=== PATIENT | male | born 1945 | race Caucasian/White ===

== ENCOUNTER 2024-12-14 17:20 | Inpatient (IN) ==
[2024-12-14 18:17] LABS: BASOPHILS # (AUTO) 0.1 X10^3/uL (0.0-0.1); BASOPHILS % (AUTO) 1.1 % (0.2-1.0); EOSINOPHILS # (AUTO) 0.8 x10^3/uL (0.0-0.2); EOSINOPHILS % (AUTO) 10.1 % (0.9-2.9); HEMATOCRIT 27.6 % (42.0-54.0); HEMOGLOBIN 9.4 g/dL (13.5-18.0); LYMPHOCYTES # (AUTO) 0.5 X10^3/uL (1.3-2.9); LYMPHOCYTES % (AUTO) 7.2 % (21.0-51.0); MEAN CORPUSCULAR HGB CONC 34.1 g/dL (33.0-35.0); MEAN CORPUSCULAR VOLUME 79.2 fL (80.0-100.0); MEAN PLATELET VOLUME 7.4 fL (7.4-11.0); MONOCYTES # (AUTO) 0.7 x10^3/uL (0.3-0.8); MONOCYTES % (AUTO) 8.7 % (0.0-13.0); NEUTROPHILS # (AUTO) 5.5 x10^3/uL (2.2-4.8); NEUTROPHILS % (AUTO) 72.9 % (42.0-75.0); PLATELET COUNT 306 X10^3/uL (150.0-450.0); RED BLOOD COUNT 3.49 X10^6/uL (4.7-6.0); RED CELL DISTRIBUTION WIDTH 15.7 % (11.6-16.5); WHITE BLOOD COUNT 7.6 X10^3/uL (3.6-10.0)
[2024-12-14] MEDS: LASIX IVP ONE (18:21)
[2024-12-14 18:28] LABS: ALBUMIN 2.9 g/dL (3.4-5.0); CALCIUM 9.2 mg/dL (8.5-10.1); CARBON DIOXIDE 18.6 mmol/L (21-32); COR CA(FOR HYPOALB) 10.1 mg/dL (8.5-10.1); CREATININE 6.59 mg/dL (0.70-1.30); TOTAL PROTEIN 7.2 g/dL (6.4-8.2)
--- NOTE | 2024-12-14 18:29 | EKG ---
Test Reason : dyspnea Blood Pressure : */* mmHG Vent. Rate : 79 BPM Atrial Rate : 79 BPM P-R Int : 162 ms QRS Dur : 80 ms QT Int : 358 ms P-R-T Axes : 47 -27 54 degrees QTc Int : 410 ms Normal sinus rhythm Low voltage QRS Borderline ECG No previous ECGs available Confirmed by Glynn Quiroga MD ([id number]) on 12/15/2024 7:25:23 AM Referred By: Confirmed By: Glynn Quiroga MD
[2024-12-14 18:37] LABS: POTASSIUM 5.5 mmol/L (3.5-5.1)
[2024-12-14 19:09] LABS: BILIRUBIN,URINE NEGATIVE (NEGATIVE); BLOOD/HEMOGLOBIN,URINE 4+ (NEGATIVE); GLUCOSE, URINE NEGATIVE (NEGATIVE); KETONES,URINE NEGATIVE (NEGATIVE); LEUKOCYTE ESTERASE ,URINE 1+ (NEGATIVE); NITRITES,URINE NEGATIVE (NEGATIVE); PROTEIN,URINE 1+ (NEGATIVE); UROBILINOGEN,URINE NORMAL (NORMAL)
[2024-12-14 19:24] LABS: APPEARANCE,URINE CLEAR (CLEAR); COLOR,URINE YELLOW (YELLOW)
[2024-12-14 19:25] LABS: BACTERIA,URINE TRACE /HPF (NEGATIVE); SQUAMOUS EPITHELIAL CELL,UR RARE /HPF (NEGATIVE)
[2024-12-14 19:36] LABS: INR 1.31 (0.8-1.3)
--- NOTE | 2024-12-14 19:39 | RAD ---
EXAM:FRONTAL VIEW CHEST X-RAYHISTORY:Shortness of Breath;COMPARISON:None.FINDINGS:Dif fuse multifocal consolidation is seen throughout the right lung predominantly occupying the right upper lung zone. There is also airspace disease in the left lower lung zone.The heart size is within normal limits.The mediastinum is unremarkable.There is no evidence of pleural effusion or gross pneumothorax.The trachea is midline.IMPRESSION:1. Diffuse multifocal consolidation is seen throughout the right lung predominantly occupying the right upper lung zone. There is also airspace disease in the left lower lung zone. This may represent acute or chronic airspace disease. Follow-up to complete resolution may be obtained as clinically indicated.THIS IS AN ELECTRONICALLY VERIFIED FINAL REPORT12/14/2024 7:36 PM - Electronically signed by Cricket Mc MD
[2024-12-14 19:42] LABS: MAGNESIUM 2.1 mg/dL (2.0-2.9)
[2024-12-14] MEDS: ROCEPHIN VIAL 1 GRAM 1 G in NS 100 ML IV 100 ML IV ONE (19:46)
[2024-12-14] MEDS: D50W ABBOJECT SYR IV ONE (19:46)
[2024-12-14] MEDS: CALCIUM GLUCONATE 10% 1 G in NS 100 ML IV 100 ML IV ONE (19:46)
[2024-12-14] MEDS: SODIUM BICARBONATE 8.4% INJ ADULT IVP ONE (19:46)
--- NOTE | 2024-12-14 20:06 | CT ---
EXAM:CHEST W/O CONHISTORY:c/o "swelling all over" 4+ edema noted to left arm and leg and 3+ pitting noted to right leg.;COMPARISON:Frontal chest radiograph same day 6:47 p.m.TECHNIQUE:CT of the chest without contrastFINDINGS:Sensitivity is reduced without intravenous contrast. The thoracic aorta tapers normally. Mediastinal lymphadenopathy is present. Coronary atherosclerotic calcifications are noted in the LAD. Trace pericardial fluid is noted. Small hiatal hernia is present.Limited visualization of the upper abdomen demonstrates no acute process. There is a moderate size layering right pleural effusion.There is dense airspace opacity in the right lung with air bronchograms suggesting severe pneumonia. Milder similar airspace infiltrates are present in the left lower lung. No suspicious bony lesion.IMPRESSION:Bilateral pneumonia versus pulmonary edema, severe on the right and mild on the left. Pneumonia and pulmonary edema both could be present.Moderate layering right pleural effusion.All CT scans at this facility use dose modulation, iterative reconstruction, and/or weight based dosing when appropriate to reduce radiation dose to as low as reasonably achievable.THIS IS AN ELECTRONICALLY VERIFIED FINAL REPORT12/14/2024 8:03 PM - Electronically signed by Lisandro Dc MD
[2024-12-14] MEDS: NovoLIN R (or HumuLIN R) IV ONE (20:07)
--- NOTE | 2024-12-14 20:11 | CT ---
EXAM: CT ABDOMEN AND PELVIS WITHOUT INTRAVENOUS CONTRASTHISTORY: Pain. Swelling all over.TECHNIQUE: Spiral axial CT images are obtained through the abdomen and pelvis without the administration of intravenous contrast. Additional coronal and sagittal reformatted images are reconstructed.COMPARISON: None available.FINDINGS:ABDOMINAL AND CHEST WALL: There is diffuse subcutaneous soft tissue edema, especially on the pelvic regions, which may represent anasarca in the appropriate clinical setting; rule out third spacing secondary to hypoalbuminemia or hypervolemia.GASTROINTESTINAL TRACT: There is an approximately 5.8 cm transverse by 5.7 cm AP by 5.7 cm CC retrocardiac hiatal hernia containing collapsed proximal stomach. Axial image 17; sagittal image 40. There is no evidence for bowel herniation, bowel obstruction, colitis or diverticulitis. A normal-appearing appendix is seen.GENITOURINARY SYSTEM: There is severe prostatomegaly (11.2 cm CC by 6 cm transverse by 7.1 cm AP). In keeping with BPH; with polypoid protrusion into the posterior inferior margin of the urinary bladder (sagittal image 48); cannot rule out prostate neoplasm with urinary bladder invasion. There is a severely dilated urinary bladder (22.4 cm CC by 13.8 cm AP by 14.8 cm transverse); DDx includes partial outlet obstruction and urinary retention. Sagittal image 48; axial image 67. There is moderate bilateral hydronephrosis and hydroureter to the UVJ's (without discernible urolithiasis); DDx includes functional obstruction secondary to urinary bladder dilatation; no urine extravasation or urinoma is seen.CT ABDOMEN: The liver, spleen, pancreas, adrenal glands, gallbladder, aorta, and inferior vena cava are within normal limits for a noncontrast CT scan. There is no intra-abdominal or retroperitoneal lymphadenopathy, free fluid, or free air seen. No abdominal herniation is noted.CT PELVIS: There is shotty bilateral inguinal lymphadenopathy in keeping with reactive lymphadenopathy. No pelvic sidewall lymphadenopathy is seen. No inguinal herniation is noted. No free fluid or free air is seen.BONES AND JOINTS: Multilevel DDD is seen within the distal thoracic and lumbar spine. The visualized bony structures are otherwise within normal limits.LUNG BASES: There is a moderate to large right pleural effusion. There are acute lung parenchymal infiltrate seen in the right middle lobe, right lower lobe, left lower lobe, consistent with acute multilobar pneumonia.IMPRESSION:1. Severe prostatomegaly (11.2 cm CC by 6 cm transverse by 7.1 cm AP). In keeping with BPH; with polypoid protrusion into the posterior inferior margin of the urinary bladder (sagittal image 48); cannot rule out prostate neoplasm with urinary bladder invasion.2. Severely dilated urinary bladder (22.4 cm CC by 13.8 cm AP by 14.8 cm transverse); DDx includes partial outlet obstruction and urinary retention. Sagittal image 48; axial image 67.3. Moderate bilateral hydronephrosis and hydroureter to the UVJ's (without discernible urolithiasis); DDx includes functional obstruction secondary to urinary bladder dilatation; no urine extravasation or urinoma is seen.4. Approximately 5.8 cm transverse by 5.7 cm AP by 5.7 cm CC retrocardiac hiatal hernia containing collapsed proximal stomach. Axial image 17; sagittal image 40.5. No evidence for bowel herniation, bowel obstruction, colitis or diverticulitis.6. Shotty bilateral inguinal lymphadenopathy in keeping with reactive lymphadenopathy7. No free fluid, free air, mass lesions, or suspicious/malignant lymphadenopathy seen.THIS IS AN ELECTRONICALLY VERIFIED FINAL REPORT12/14/2024 8:08 PM - Electronically signed by Sophia Odom MD
--- NOTE | 2024-12-14 21:24 | DR.EXTPAIN ---
HPI Time seen Time Seen by Provider: 12/14/24 17:55 PCP Primary Care Physician: Marmolejo Complaint/Symptoms Chief Complaint Doctor Comments: 78 yo M, hx of DM, HTN, CHF, c/o diffuse swelling of bilat lower extremities, scrotum, abd, accomp by increasing dyspnea. Denies fever. Denies other complaints. Chief Complaint:: Patient c/o "swelling all over" 4+ edema noted to left arm and leg and 3+ pitting noted to right leg. Patient reports that his legs have been swollen "for months" and his left arm has been swollen for "a week". patient also reports that his scrotum is swollen. COVID-19 Coronavirus risk:travel/contact w/high risk person: No Has patient experienced Coronavirus symptoms: No Source History Provided: Patient and Significant Other Mode of arrival Mode of Arrival: Wheelchair Timing Onset of Chief Complaint: 12/08/24 PMH PMH Past Medical History: Yes Past Medical History: Depression, Diabetes and Hypertension Past Medical History Comment: prostate problems Past Surgical History: No Surgical History: No History Family History History of Family Medical Conditions: Yes Family Medical History: Diabetes Mellitus, Cancer, [place], Coronary Artery Disease and Hypertension Social History Type of Tobacco Use: None Does any household member use tobacco: No Alcohol Use: None Do you use any recreational Drugs:: No Lives With: Spouse Lives Where: Home Travel Risk Coronavirus risk:travel/contact w/high risk person: No Has patient experienced Coronavirus symptoms: No Infectious screening Have you traveled outside the country in the last 6 months?: No Isolation: Standard ROS Review of Systems Respiratoy: Moist Cough and Short of Breath Musculoskeletal: Other (bilat lower ext edema) All Other Systems: Reviewed and Negative PE Vital Signs Vitals: Vital Signs Temperature 97.6 F Pulse Rate 80 Pulse Rate 80 Pulse Rate 79 Pulse Rate 85 Pulse Rate 81 Respiratory Rate 19 Respiratory Rate 21 Respiratory Rate 19 Respiratory Rate 22 Respiratory Rate 22 Blood Pressure 141/68 O2 Sat by Pulse Oximetry 94 O2 Sat by Pulse Oximetry 94 O2 Sat by Pulse Oximetry 94 O2 Sat by Pulse Oximetry 94 O2 Sat by Pulse Oximetry 94 General Limitations: No Limitations General Appearance: Alert and In No Apparent Distress Head Head Exam: Normal Inspection Eyes Eye exam: Normal Appearance ENT ENT Exam: Normal Exam Neck Neck Exam: Normal Inspection Chest Chest Inspection: Normal Inspection Respiratory Respiratory Exam: Normal Lung Sounds Bilat Cardiovascular Cardiovascular Exam: Regular Rate and Normal Rhythm Abdominal Exam Abdominal Exam: Normal Inspection, Normal Bowel Sounds and Soft Extremities Extremities Exam: Other (3+ pitting edema of bilat lower ext, pelvis, abd & upper ext, consistent with anasarca) Back Back Exam: Normal Inspection Neurological Neurological Exam: Alert, Oriented X3 and CN II-XII Intact Psychiatric Psychiatric Exam: Normal Affect and Normal Mood Skin Skin Exam: Warm, Dry, Intact and Normal Color ROR Labs Reviewed Laboratory Results Reviewed?: Yes 12/14/24 18:05 12/14/24 18:05 Laboratory: WBC 7.6 X10^3/uL (3.6-10.0) 12/14/24 18:05 RBC 3.49 X10^6/uL (4.7-6.0) L 12/14/24 18:05 Hgb 9.4 g/dL (13.5-18.0) L 12/14/24 18:05 Hct 27.6 % (42.0-54.0) L 12/14/24 18:05 MCV 79.2 fL (80.0-100.0) L 12/14/24 18:05 MCH 27.0 pg (27.0-34.0) 12/14/24 18:05 MCHC 34.1 g/dL (33.0-35.0) 12/14/24 18:05 RDW 15.7 % (11.6-16.5) 12/14/24 18:05 Plt Count 306 X10^3/uL (150.0-450.0) 12/14/24 18:05 MPV 7.4 fL (7.4-11.0) 12/14/24 18:05 Neut % (Auto) 72.9 % (42.0-75.0) 12/14/24 18:05 Lymph % (Auto) 7.2 % (21.0-51.0) L 12/14/24 18:05 [place] % (Auto) 8.7 % (0.0-13.0) 12/14/24 18:05 Eos % (Auto) 10.1 % (0.9-2.9) H 12/14/24 18:05 Baso % (Auto) 1.1 % (0.2-1.0) H 12/14/24 18:05 Neut # (Auto) 5.5 x10^3/uL (2.2-4.8) H 12/14/24 18:05 Lymph # (Auto) 0.5 X10^3/uL (1.3-2.9) L 12/14/24 18:05 [place] # (Auto) 0.7 x10^3/uL (0.3-0.8) 12/14/24 18:05 Eos # (Auto) 0.8 x10^3/uL (0.0-0.2) H 12/14/24 18:05 Baso # (Auto) 0.1 X10^3/uL (0.0-0.1) 12/14/24 18:05 Absolute Nucleated RBC 0.0 /100WBC 12/14/24 18:05 PT 16.0 SECONDS (11.8-14.3) 12/14/24 19:16 INR Target Range - 12/14/24 19:16 INR 1.31 (0.8-1.3) H 12/14/24 19:16 APTT 40.4 SECONDS (22.9-36.5) H 12/14/24 19:16 PTT Comment - 12/14/24 19:16 Sodium 123 mmol/L (136-145) L* 12/14/24 18:05 Corrected Sodium 124 mmol/L (136-145) L 12/14/24 18:05 Potassium 5.5 mmol/L (3.5-5.1) H 12/14/24 18:05 Chloride 91 mmol/L (98-107) L 12/14/24 18:05 Carbon Dioxide 18.6 mmol/L (21-32) L 12/14/24 18:05 BUN 115 mg/dL (7-18) H 12/14/24 18:05 Creatinine 6.59 mg/dL (0.70-1.30) H 12/14/24 18:05 Est GFR (MDRD) Af Amer 11 (>60) L 12/14/24 18:05 Est GFR (MDRD) Non-Af 9 (>60) L 12/14/24 18:05 Glucose 134 mg/dL (65-99) H 12/14/24 18:05 Calcium 9.2 mg/dL (8.5-10.1) 12/14/24 18:05 Corrected Calcium 10.1 mg/dL (8.5-10.1) 12/14/24 18:05 Magnesium 2.1 mg/dL (2.0-2.9) 12/14/24 19:16 Total Bilirubin 0.50 mg/dL (0.2-1.0) 12/14/24 18:05 AST 20 Units/L (15-37) 12/14/24 18:05 ALT 21 Units/L (12-78) 12/14/24 18:05 Alkaline Phosphatase 94 Units/L (46-116) 12/14/24 18:05 Creatine Kinase 57 Units/L (39-308) 12/14/24 19:16 Troponin I High Sens 7.3 ng/L (4.0-60.0) 12/14/24 19:16 B-Natriuretic Peptide 990 pg/mL (0-79) H 12/14/24 18:05 Total Protein 7.2 g/dL (6.4-8.2) 12/14/24 18:05 Albumin 2.9 g/dL (3.4-5.0) L 12/14/24 18:05 Globulin 4.3 g/dL (2.5-4.5) 12/14/24 18:05 Albumin/Globulin Ratio 0.7 Ratio (1.1-2.1) L 12/14/24 18:05 Lipase 23 Units/L (16-77) 12/14/24 18:05 Specimen Type Random urine 12/14/24 18:50 Urine Color Yellow (YELLOW) 12/14/24 18:50 Urine Appearance Clear (CLEAR) 12/14/24 18:50 Urine pH 6.0 (5.0 - 8.0) 12/14/24 18:50 Ur Specific [place] 1.015 (1.000-1.030) 12/14/24 18:50 Urine Protein 1+ (NEGATIVE) 12/14/24 18:50 Urine Glucose (UA) Negative (NEGATIVE) 12/14/24 18:50 Urine Ketones Negative (NEGATIVE) 12/14/24 18:50 Urine Blood 4+ (NEGATIVE) 12/14/24 18:50 Urine Nitrite Negative (NEGATIVE) 12/14/24 18:50 Urine Bilirubin Negative (NEGATIVE) 12/14/24 18:50 Urine Urobilinogen Normal (NORMAL) 12/14/24 18:50 Ur Leukocyte Esterase 1+ (NEGATIVE) 12/14/24 18:50 Urine RBC 10-20 /HPF (0-3) A 12/14/24 18:50 Urine WBC 5-10 /HPF (0-5) A 12/14/24 18:50 Ur Squamous Epith Cells Rare /HPF (NEGATIVE) 12/14/24 18:50 Urine Bacteria Trace /HPF (NEGATIVE) 12/14/24 18:50 Ur Culture Indicated? No/not indicated 12/14/24 18:50 Opioid Opioid Risk Tool Age (Carlos Alberto box if 16-45): No History of Preadolescent Sexual Abuse: No Total: 0 Total Score Risk Category: Low Risk Copyright: Luther DEL CID predicting aberrant behaviors Discharge Plan Diagnosis Discharge Problem: JERAMY (acute kidney injury), Anasarca, Acute hyperkalemia, Acute hyponatremia, CAP (community acquired pneumonia), Pulmonary edema, Acute UTI Discharge Plan Patient Disposition: ADMITTED INPATIENT Condition: Stable Prescriptions: No Action venlafaxine 75 mg tablet 75 mg PO BID bisoprolol-hydrochlorothiazide 10-6.25 mg tablet 1 tab PO QDAY tamsulosin 0.4 mg capsule 0.4 mg PO TID pantoprazole 40 mg tablet,delayed release (DR/EC) 40 mg PO QDAY pioglitazone 30 mg tablet 30 mg PO QDAY metformin 500 mg tablet extended release 24 hr 500 mg PO BID Health Concerns: Post Hospitalization: new medications and changes needed to prevent readmission or further decline. Pt educated and given instructions on all concerns. Plan of Treatment: Continue with present treatment and follow up plan. Pt is to keep follow up appointment as instructed and take medications as ordered. Orders to Discharge Patient Discharge Orders: Transfer (Routine); Ordered 12/14/24 Ordered By: Jr Leon Follow ups/Referrals Follow ups/Referrals: NAVJOT MARMOLEJO [Primary Care Provider] - 3 days Instructions Stand Alone Forms: Find Help Web Site, Post Hospital Follow Up Care ADDITIONAL NOTES Additional Notes Additional Notes: Pt accepted by Dr Marmolejo
[2024-12-14] MEDS: ZITHROMAX INJ 500 MG VIAL 500 MG in D5W 250 ML IV 250 ML IV SCH ×2 (21:31→23:31)
[2024-12-14 21:39] LABS: CALCIUM 9.6 mg/dL (8.5-10.1); CARBON DIOXIDE 22.2 mmol/L (21-32); CREATININE 6.71 mg/dL (0.70-1.30)
[2024-12-14 21:51] LABS: POTASSIUM 5.4 mmol/L (3.5-5.1)
[2024-12-14 22:01] LABS: BILIRUBIN,URINE NEGATIVE (NEGATIVE); BLOOD/HEMOGLOBIN,URINE 4+ (NEGATIVE); GLUCOSE, URINE NEGATIVE (NEGATIVE); KETONES,URINE NEGATIVE (NEGATIVE); LEUKOCYTE ESTERASE ,URINE 1+ (NEGATIVE); NITRITES,URINE NEGATIVE (NEGATIVE); PROTEIN,URINE 2+ (NEGATIVE); UROBILINOGEN,URINE NORMAL (NORMAL)
[2024-12-14 22:06] LABS: APPEARANCE,URINE CLEAR (CLEAR); BACTERIA,URINE NEGATIVE /HPF (NEGATIVE); COLOR,URINE PALE YELLOW (YELLOW); SQUAMOUS EPITHELIAL CELL,UR RARE /HPF (NEGATIVE)
--- NOTE | 2024-12-14 22:40 | EKG ---
Test Reason : Hyperkalemia, Hyponatremia Blood Pressure : */* mmHG Vent. Rate : 74 BPM Atrial Rate : 74 BPM P-R Int : 170 ms QRS Dur : 80 ms QT Int : 366 ms P-R-T Axes : 57 -3 66 degrees QTc Int : 406 ms Normal sinus rhythm Low voltage QRS Borderline ECG When compared with ECG of 14-DEC-2024 18:25, (Unconfirmed) No significant change was found Confirmed by Glynn Quiroga MD ([id number]) on 12/15/2024 7:23:44 AM Referred By: Confirmed By: Glynn Quiroga MD
[2024-12-14] MEDS: FLOMAX PO SCH (22:58)
[2024-12-14] MEDS: NS 1,000 ML IV 1,000 ML IV SCH (22:58)
[2024-12-14] MEDS ORDERED: ROCEPHIN VIAL 1 GRAM 1 G in NS 100 ML IV 100 ML IV SCH (23:00)
[2024-12-14 23:25] VITALS: BMI 36.0
[2024-12-15] MEDS: SNACK - Diabetic Appropriate PO SCH (02:02)
--- NOTE | 2024-12-15 04:58 | EKG ---
Test Reason : Hyperkalemia, Hyponatremia Blood Pressure : */* mmHG Vent. Rate : 80 BPM Atrial Rate : 80 BPM P-R Int : 190 ms QRS Dur : 62 ms QT Int : 348 ms P-R-T Axes : 58 -5 3 degrees QTc Int : 401 ms Normal sinus rhythm Low voltage QRS Nonspecific ST and T wave abnormality Abnormal ECG When compared with ECG of 14-DEC-2024 22:17, (Unconfirmed) Nonspecific T wave abnormality now evident in Inferior leads Confirmed by Glynn Quiroga MD ([id number]) on 12/15/2024 7:22:19 AM Referred By: Confirmed By: Glynn Quiroga MD
[2024-12-15] MEDS ORDERED: NovoLIN R (or HumuLIN R) SUBCUT PRN (06:10)
[2024-12-15] MEDS: OMNIPAQUE 350 mg/mL 100 mL BTL 100 ML ONE (07:15)
[2024-12-15] MEDS: NS 100 ML IV 100 ML ONE (07:15)
[2024-12-15 07:28] LABS: BASOPHILS # (AUTO) 0.1 X10^3/uL (0.0-0.1); BASOPHILS % (AUTO) 1.2 % (0.2-1.0); EOSINOPHILS # (AUTO) 0.7 x10^3/uL (0.0-0.2); EOSINOPHILS % (AUTO) 9.9 % (0.9-2.9); HEMATOCRIT 30.4 % (42.0-54.0); HEMOGLOBIN 10.3 g/dL (13.5-18.0); LYMPHOCYTES # (AUTO) 0.6 X10^3/uL (1.3-2.9); LYMPHOCYTES % (AUTO) 8.8 % (21.0-51.0); MEAN CORPUSCULAR HEMOGLOBIN 26.6 pg (27.0-34.0); MEAN CORPUSCULAR HGB CONC 33.8 g/dL (33.0-35.0); MEAN CORPUSCULAR VOLUME 78.6 fL (80.0-100.0); MEAN PLATELET VOLUME 7.1 fL (7.4-11.0); MONOCYTES # (AUTO) 0.6 x10^3/uL (0.3-0.8); MONOCYTES % (AUTO) 8.5 % (0.0-13.0); NEUTROPHILS # (AUTO) 5.2 x10^3/uL (2.2-4.8); NEUTROPHILS % (AUTO) 71.6 % (42.0-75.0); PLATELET COUNT 350 X10^3/uL (150.0-450.0); RED BLOOD COUNT 3.87 X10^6/uL (4.7-6.0); RED CELL DISTRIBUTION WIDTH 15.6 % (11.6-16.5); WHITE BLOOD COUNT 7.3 X10^3/uL (3.6-10.0)
[2024-12-15 07:38] LABS: INR 1.27 (0.8-1.3)
[2024-12-15 07:45] LABS: ALBUMIN 2.8 g/dL (3.4-5.0); CALCIUM 9.4 mg/dL (8.5-10.1); CARBON DIOXIDE 23.9 mmol/L (21-32); CHOL/HDL RATIO 2.7 (0.0-5.0); COR CA(FOR HYPOALB) 10.4 mg/dL (8.5-10.1); CREATININE 4.95 mg/dL (0.70-1.30); POTASSIUM 4.6 mmol/L (3.5-5.1); TOTAL PROTEIN 7.3 g/dL (6.4-8.2)
--- NOTE | 2024-12-15 08:48 | RAD ---
EXAM:Portable chestHISTORY:Pulmonary edemaCOMPARISON:12/14/2024 chest x-ray and CT chestFINDINGS:Heart size is within normal limits. Dense alveolar consolidation is present in the right upper lobe with alveolar infiltrates also in the right middle and right lower lobe. There is a subtle infiltrate in the left lower lobe. Findings would seem most consistent with multifocal pneumonia rather than pulmonary edema. Clinical and laboratory correlation recommended. Right pleural effusion appears to be present. Bony thorax is unremarkable.IMPRESSION:Multifocal infiltrates involving the right upper lobe, right middle lobe, right lower lobe and to a lesser extent the retrocardiac left lower lobe. Findings would seem most consistent with multifocal pneumonia rather than edema however clinical and laboratory correlation recommended.THIS IS AN ELECTRONICALLY VERIFIED FINAL REPORT12/15/2024 8:45 AM - Electronically signed by Roger Hanna MD
[2024-12-15] MEDS: ACTOS PO SCH (08:58)
[2024-12-15] MEDS: ZIAC 5/6.25 MG PO SCH (08:59)
[2024-12-15] MEDS: PROTONIX TAB 40 MG PO SCH (08:59)
[2024-12-15] MEDS ORDERED: GLUCOPHAGE XR 24-HR PO SCH (09:00)
[2024-12-15] MEDS: ZEBETA TAB 5 MG PO SCH (09:00)
[2024-12-15] MEDS: EFFEXOR TAB 75 MG (BID DOSING) PO SCH (09:00)
[2024-12-15] MEDS: LASIX IVP SCH (09:01)
[2024-12-15] MEDS: PULMICORT NEB TX 0.5 MG NEB SCH (09:20)
[2024-12-15] MEDS: DUONEB 0.5 MG/3 MG (3 mL) NEB SCH (09:20)
--- NOTE | 2024-12-15 10:26 | EKG ---
Test Reason : Hyperkalemia, Hyponatremia Blood Pressure : */* mmHG Vent. Rate : 80 BPM Atrial Rate : 80 BPM P-R Int : 164 ms QRS Dur : 82 ms QT Int : 370 ms P-R-T Axes : 43 -18 50 degrees QTc Int : 426 ms Normal sinus rhythm Low voltage QRS Borderline ECG When compared with ECG of 15-DEC-2024 04:35, QRS duration has increased Nonspecific T wave abnormality no longer evident in Inferior leads Confirmed by Glynn Quiroga MD ([id number]) on 12/15/2024 2:59:17 PM Referred By: Confirmed By: Glynn Quiroga MD
[2024-12-15] MEDS: LASIX IVP ONE (11:10)
[2024-12-15] MEDS: ALBUMIN HUMAN 25%- 100 ML 100 ML IV SCH (16:30)
[2024-12-15] MEDS: ZITHROMAX INJ 500 MG VIAL 500 MG in D5W 250 ML IV 250 ML IV SCH (20:35)
[2024-12-16] MEDS: ROCEPHIN VIAL 1 GRAM 1 G in NS 100 ML IV 100 ML IV SCH (01:28)
[2024-12-16 06:25] LABS: BASOPHILS # (AUTO) 0.2 X10^3/uL (0.0-0.1); BASOPHILS % (AUTO) 2.6 % (0.2-1.0); EOSINOPHILS # (AUTO) 0.9 x10^3/uL (0.0-0.2); HEMATOCRIT 25.1 % (42.0-54.0); HEMOGLOBIN 8.6 g/dL (13.5-18.0); LYMPHOCYTES # (AUTO) 0.7 X10^3/uL (1.3-2.9); LYMPHOCYTES % (AUTO) 9.7 % (21.0-51.0); MEAN CORPUSCULAR HEMOGLOBIN 26.9 pg (27.0-34.0); MEAN CORPUSCULAR HGB CONC 34.4 g/dL (33.0-35.0); MEAN CORPUSCULAR VOLUME 78.2 fL (80.0-100.0); MEAN PLATELET VOLUME 7.2 fL (7.4-11.0); MONOCYTES # (AUTO) 0.7 x10^3/uL (0.3-0.8); MONOCYTES % (AUTO) 10.9 % (0.0-13.0); NEUTROPHILS # (AUTO) 4.4 x10^3/uL (2.2-4.8); NEUTROPHILS % (AUTO) 63.8 % (42.0-75.0); PLATELET COUNT 328 X10^3/uL (150.0-450.0); RED BLOOD COUNT 3.21 X10^6/uL (4.7-6.0); RED CELL DISTRIBUTION WIDTH 15.6 % (11.6-16.5); WHITE BLOOD COUNT 6.8 X10^3/uL (3.6-10.0)
[2024-12-16 06:36] LABS: ALBUMIN 2.8 g/dL (3.4-5.0); CALCIUM 8.8 mg/dL (8.5-10.1); CARBON DIOXIDE 25.1 mmol/L (21-32); COR CA(FOR HYPOALB) 9.8 mg/dL (8.5-10.1); CREATININE 2.95 mg/dL (0.70-1.30); POTASSIUM 3.9 mmol/L (3.5-5.1); TOTAL PROTEIN 6.7 g/dL (6.4-8.2)
[2024-12-17 06:23] LABS: BASOPHILS # (AUTO) 0.1 X10^3/uL (0.0-0.1); BASOPHILS % (AUTO) 1.6 % (0.2-1.0); EOSINOPHILS # (AUTO) 0.7 x10^3/uL (0.0-0.2); EOSINOPHILS % (AUTO) 9.1 % (0.9-2.9); HEMATOCRIT 26.1 % (42.0-54.0); LYMPHOCYTES # (AUTO) 0.6 X10^3/uL (1.3-2.9); MEAN CORPUSCULAR HEMOGLOBIN 27.1 pg (27.0-34.0); MEAN CORPUSCULAR HGB CONC 34.5 g/dL (33.0-35.0); MEAN CORPUSCULAR VOLUME 78.6 fL (80.0-100.0); MEAN PLATELET VOLUME 7.2 fL (7.4-11.0); MONOCYTES # (AUTO) 0.9 x10^3/uL (0.3-0.8); MONOCYTES % (AUTO) 12.5 % (0.0-13.0); NEUTROPHILS # (AUTO) 4.8 x10^3/uL (2.2-4.8); NEUTROPHILS % (AUTO) 67.8 % (42.0-75.0); PLATELET COUNT 315 X10^3/uL (150.0-450.0); RED BLOOD COUNT 3.32 X10^6/uL (4.7-6.0); RED CELL DISTRIBUTION WIDTH 15.5 % (11.6-16.5); WHITE BLOOD COUNT 7.1 X10^3/uL (3.6-10.0)
[2024-12-17 06:47] LABS: ALBUMIN 2.9 g/dL (3.4-5.0); CALCIUM 8.5 mg/dL (8.5-10.1); CARBON DIOXIDE 25.7 mmol/L (21-32); COR CA(FOR HYPOALB) 9.4 mg/dL (8.5-10.1); CREATININE 2.32 mg/dL (0.70-1.30); POTASSIUM 3.9 mmol/L (3.5-5.1); TOTAL PROTEIN 6.5 g/dL (6.4-8.2)
[2024-12-17 10:16] VITALS: BP 162/74; PULSE 84; RESP 17; TEMP 97.4; O2SAT 93
== END 2024-12-17 11:48 | disposition hospice, home (50) | DRG 725 ==
LOC: ER 17:20 → MED/SURG 21:19
PROVIDERS: ADMIT Obstetrics & Gynecology Obstetrics; ATTEND Obstetrics & Gynecology Obstetrics
DX: N40.1 Benign prostatic hyperplasia with lower urinary tract symptoms; N13.8 Other obstructive and reflux uropathy; N50.89 Other specified disorders of the male genital organs; R06.02 Shortness of breath; R33.8 Other retention of urine; R94.31 Abnormal electrocardiogram [ECG] [EKG]; Z65.8 Other specified problems related to psychosocial circumstances; E87.1 Hypo-osmolality and hyponatremia; R97.20 Elevated prostate specific antigen [PSA]; R31.9 Hematuria, unspecified; R79.1 Abnormal coagulation profile; C61 Malignant neoplasm of prostate; J81.0 Acute pulmonary edema; E87.5 Hyperkalemia; I10 Essential (primary) hypertension; R26.89 Other abnormalities of gait and mobility; N17.8 Other acute kidney failure; E11.65 Type 2 diabetes mellitus with hyperglycemia